=== PATIENT | male | born 1950 | race Asian ===

== ENCOUNTER 2017-04-26 03:07 | Inpatient (IN) | payer OTHER ==
[~2017-04-26] VITALS: Ht 167.6 cm; Wt 91.2 kg
[2017-04-26] VITALS (9 sets, daily range): BP systolic 105–162; BP diastolic 75–110
--- NOTE | ~2017-04-26 | EKG ---
[address] [place] [address] ELECTROCARDIOGRAM REPORT Name: EMILIANA MASCORRO Room #: 239-P ADM IN M.R.#: [id number] Admission: 04/26/17 Attend Phys: Chauncey Mcfadden Discharge: Date of : 46 Report #: [id number] THIS REPORT FOR: //name// [facility] Test Date: 2017-04-28 Test Time: 07:28:06 Pat Name: EMILIANA MASCORRO Department: Room: 239 P Gender: M Clinical Courier: Noni : 1950 Requested By: uJlianna Osorio Order Number: [id number] MD: Merlin Islas Measurements Intervals [place] Rate: 98 P: 40 [place]: 150 QRS: -70 QRSD: 137 T: 55 QT: 317 QTc: 405 Interpretive Statements Sinus rhythm Right bundle branch block Inferior infarct, old Anterolateral infarct, old Compared to ECG 04/26/2017 10:02:52 inferior repolarization abnormality is no longer present Electronically Signed On 04-28-2017 8:03:52 CDT by Merlin Islas [email or web address] <ELECTRONICALLY SIGNED> By: Merlin Islas MD, [facility] 04/28/17802 7 7 Merlin Islas MD, [facility] /EPI
--- NOTE | ~2017-04-26 | EKG ---
[address] [place] [address] ELECTROCARDIOGRAM REPORT Name: EMILIANA MASCORRO Room #: 211-P ADM IN M.R.#: [id number] Admission: 04/26/17 Attend Phys: Chauncey Mcfadden Discharge: Date of : 46 Report #: [id number] THIS REPORT FOR: //name// [facility] ED Test Date: 2017-04-26 Test Time: 03:17:27 Pat Name: EMILIANA MASCORRO Department: Room: 211 Gender: M Tool Hardener: YULIA : 1950 Requested By: Laureen Biswas Order Number: [id number] MD: Merlin Islas Measurements Intervals [place] Rate: 91 P: [place]: QRS: -83 QRSD: 165 T: -6 QT: 434 QTc: 535 Interpretive Statements Atrial flutter Right bundle branch block Anterolateral infarct, age indeterminate Possible inferior infarct, age indeterminate No previous ECG available for comparison Electronically Signed On 04-27-2017 9:59:54 CDT by Merlin Islas [email or web address] <ELECTRONICALLY SIGNED> By: Merlin Islas MD, [facility] 04/27/17 0959 D: 08/316 6 Merlin Islas MD, FACC /EPI
--- NOTE | ~2017-04-26 | CATHLAB ---
[facility] [address] [place] [address] INVASIVE PROCEDURE REPORT Name: EMILIANA MASCORRO Room #: 211-P [facility] IN M.R.#: [id number] Admission: 04/26/17 Attend Phys: Chauncey Cruz Discharge: 05/03/17 Date of : 46 Date of Service: 05/04/17 1736 Report #: [id number] THIS REPORT FOR: //name// APPROVED REPORT Patient Details Patient Status: In-Patient Room #: The patient is a 67 year-old male Event Personnel Bereket Díaz Electric Motor And Generator Assembler, Bethany Matt RN RN, Angelo Hazel RN, Yuli Kaufman, Roger Alves Monitor Procedures Performed Left Heart Cath w/or w/o Coronaries [id number] [facility] , Left Heart Catheterization, Supervision of Conscious sedation Indication Non-STEMI Procedure Narrative The Right Groin^ was infiltrated with 1% Lidocaine subcutaneous anesthesia. A PINNACLE 4FR Sheath #[id number] sheath was inserted into the RFA^. Coronary angiography was performed using coronary diagnostic catheters. The right coronary system was accessed and visualized with a JR4 catheter. The left coronary system was accessed and visualized with a JL4 catheter. The left ventricle was accessed and visualized with a PIGTAIL catheter. Left ventricular/Aortic Valve gradient assessed via catheter pullback. Hemostasis was obtained with manual pressure following sheath removal without any complications. The patient tolerated the procedure well and there were no complications associated with the procedure. There was no hematoma. Intraoperative Conscious Sedation Sedation start time: 12:56 Case end Time: 13:13 Versed 2 mg Fluoro Time: 2.52 minutes Dose: 435 mGy Contrast Type and Amount: Omnipaque [address] [facility] [place] [address] [address] INVASIVE PROCEDURE REPORT Name: EMILIANA MASCORRO Room #: [facility] IN ..#: [id number] Admission: 04/26/17 Attend Phys: Chauncey Cruz Discharge: 05/03/17 Date of : 46 Date of Service: 05/04/17 1736 Report #: [id number] Diagnostic Cath Left Main Normal origin and caliber bifurcating into LAD and LCx without obstructing lesions. LAD Small to moderate caliber vessel with a napkin ring lesion proximally which is eccentric and aprrox 76% stenosed. It then bifurcating with first diagonal branch. the ostial mid LAD had 99% lesion anf the vessel continues in anterior interventricular sulcus tapering to apex. Circumflex Moderate caliber vessel which at the origin of a long first marginal is subtotally occcluded with thrombus present. the distal cx is a small nonbranching vessel terminating in av groove OM1 subtotally and diffusely diseased vessel with two subtotally blocked branches reconstituting via hetero and homo collaterals. R PDA Moderate proximal lesion of approximately 65% RPLV Proximal region of abnormality which may represent a moderate non flow limiting lesion Left Ventriculography The left ventricle is moderately dilated in size with contractility. The left ventricular ejection fraction is estimated to be 50%. Left ventricular wall motion abnormalities are present. Hemodynamics The aortic pressure is 119/72 mmHg with a mean of 92 mmHg. The left ventricular pressure is 126/10 mmHg with a mean of mmHg. The left ventricular end diastolic pressure is 34 mmHg. Conclusion 1 SIGNIFICANT MULTIVESSEL DISEASE BEST REVASCULARIZED WITH ACBG 2.NORMAL EJECTION FRACTION WITH INFERIOR AKINESIS Recommendations Aggressive Medical Therapy CABG <ELECTRONICALLY SIGNED> By: Bereket Díaz MD 05/04/17 1736 1736 1736 Bereket Díaz MD /INF
--- NOTE | ~2017-04-26 | EKG ---
[address] [place] [address] ELECTROCARDIOGRAM REPORT Name: EMILIANA MASCORRO Room #: 211-P ADM IN M.R.#: [id number] Admission: 04/26/17 Attend Phys: Chauncey Mcfadden Discharge: Date of : 46 Report #: [id number] THIS REPORT FOR: //name// [facility] Test Date: 2017-04-26 Test Time: 10:02:52 Pat Name: EMILIANA MASCORRO Department: Room: 211 P Gender: M Live In Housekeeper Nanny: EVELIO : 1950 Requested By: Chauncey Mcfadden Order Number: [id number] MD: Merlin Islas Measurements Intervals [place] Rate: 82 P: 32 [place]: 150 QRS: -91 QRSD: 154 T: 4 QT: 422 QTc: 493 Interpretive Statements Sinus rhythm Right bundle branch block Anterolateral infarct, age indeterminate Inferior infarct, old No previous ECG available for comparison Electronically Signed On 04-27-2017 10:22:35 CDT by Merlin Islas [email or web address] <ELECTRONICALLY SIGNED> By: Merlin Islas MD, [facility] 04/27/17 1022 1002 1002 Merlin Islas MD, FACC /EPI
--- NOTE | ~2017-04-26 | 2DMMODE ---
[facility] [address] [place] [address] 2 D/M-MODE ECHOCARDIOGRAM Name: EMILIANA MASCORRO Room #: 211-P ADM IN M.R.#: [id number] Admission: 04/26/17 Attend Phys: Chauncey Cruz Discharge: Date of : 46 Date of Service: 04/26/17 1646 Report #: [id number] THIS REPORT FOR: //name// APPROVED REPORT Study performed: 04/26/2017 14:16:50 EXAM: Comprehensive 2D, Doppler, and color-flow Echocardiogram Patient Location: Bedside Room #: 211 Status: routine BSA: 1.99 HR: 86 bpm BP: 120/83 mmHg Other Information Study Quality: Fair Indications Pre-Op Hx HTN, DM 2D Dimensions RVDd: 36.00 mm LVEF(%): 69.80 (>50%) IVSd: 10.37 (7-11mm) LVOT Diam: 23.34 (18-24mm) LVDd: 53.23 mm PWd: 11.31 (7-11mm) Ascending Ao: 34.95 (22-36mm) LVDs: 32.10 (25-40mm) Aortic Root: 35.36 mm Arango's LVEF: 69.80 % Volumes Left Atrial Volume (Systole) Single Plane 4CH: 29.19 mL Single Plane 2CH: 76.04 mL LA ESV Index: 28.00 mL/m2 Aortic Valve AoV Peak Olayinka.: 1.23 m/s AO Peak Gr.: 6.06 mmHg LVOT Max P.60 mmHg LVOT Max V: 1.07 m/s ERIC Vmax: 3.72 cm2 Mitral Valve E/A Ratio: 1.9 MV Decel. Time: 160.15 ms [facility] [place] [place] [address] 2 D/M-MODE ECHOCARDIOGRAM Name: EMILIANA MASCORRO Room #: [address] [place] [address] IN ..#: [id number] Admission: 04/26/17 Attend Phys: Chauncey Cruz Discharge: Date of : 46 Date of Service: 04/26/17 1646 Report #: [id number] MV E Max Olayinka.: 1.19 m/s MV A Olayinka.: 0.64 m/s MV PHT: 46.44 ms IVRT: 73.82 ms Pulmonary Valve PV Peak Olayinka.: 1.13 m/s PV Peak Gr.: 5.13 mmHg Pulmonary Vein P Vein S: 0.43 m/s P Vein D: 0.49 m/s P Vein S/D Ratio: 0.88 Tricuspid Valve TR Peak Olayinka.: 3.58 m/s RAP Estimate: 5.00 mmHg TR Peak Gr.: 51.22 mmHg PA Pressure: 56.00 mmHg Left Ventricle The left ventricle is normal size. distal septal hypokinesis There is normal left ventricular wall thickness. The left ventricular systolic function is normal. The left ventricular ejection fraction is within the normal range. LVEF is 65%. The left ventricular diastolic function is normal. Right Ventricle The right ventricle is normal size. The right ventricular systolic function is normal. Atria The left atrium size is normal. The right atrium size is normal. Aortic Valve The aortic valve is not well visualized. Trace aortic regurgitation. There is no aortic valvular stenosis. Mitral Valve Mitral valve leaflets are thickened. Moderate mitral regurgitation. No evidence of mitral valve stenosis. Tricuspid Valve The tricuspid valve is normal in structure. There is trace tricuspid regurgitation. The right atrial pressure is estimated at 5 mmHg. There is moderate pulmonary hypertension with an estimated PAP of 56 mmHg. [facility] [address] [place] [address] 2 D/M-MODE ECHOCARDIOGRAM Name: EMILIANA MASCORRO Room #: 211-P [facility] IN M.R.#: [id number] Admission: 04/26/17 Attend Phys: Chauncey Cruz Discharge: Date of : 46 Date of Service: 04/26/17 1646 Report #: [id number] Pulmonic Valve The pulmonary valve is normal in structure. Trace pulmonic regurgitation. Great Vessels The aortic root is normal in size. The ascending aorta is normal in size. IVC is normal in size and collapses >50% with inspiration. Pericardium There is no pericardial effusion. <Conclusion> The left ventricle is normal size. distal septal hypokinesis LVEF is 65%. The right ventricle is normal size. The right ventricular systolic function is normal. The aortic valve is not well visualized. Trace aortic regurgitation. There is no aortic valvular stenosis. Mitral valve leaflets are thickened. Moderate mitral regurgitation. The tricuspid valve is normal in structure. There is trace tricuspid regurgitation. The right atrial pressure is estimated at 5 mmHg. There is moderate pulmonary hypertension with an estimated PAP of 56 mmHg. The pulmonary valve is normal in structure. Trace pulmonic regurgitation. The aortic root is normal in size. The ascending aorta is normal in size. <ELECTRONICALLY SIGNED> By: Bereket Díaz MD 04/26/17 1646 164 164 Bereket Díaz MD /INF
--- NOTE | ~2017-04-26 | EKG ---
[place] [address] [facility] [place] [address] ELECTROCARDIOGRAM REPORT Name: EMILIANA MASCORRO Room #: 211-P ADM IN M.R.#: [id number] Admission: 04/26/17 Attend Phys: Chauncey Mcfadden Discharge: Date of : 46 Report #: [id number] THIS REPORT FOR: //name// [facility] ED Test Date: 2017-04-26 Test Time: 03:20:49 Pat Name: EMILIANA MASCORRO Department: Room: 211 Gender: M Human Resource Assistant: YULIA : 1950 Requested By: Laureen Biswas Order Number: [id number] MD: Merlin Islas Measurements Intervals [place] Rate: 86 P: 41 [place]: 151 QRS: -91 QRSD: 162 T: -8 QT: 421 QTc: 504 Interpretive Statements Sinus rhythm Right bundle branch block Anterolateral infarct, age indeterminate Inferior infarct, age indeterminate No previous ECG available for comparison Electronically Signed On 04-27-2017 10:00:15 CDT by Merlin Islas [email or web address] <ELECTRONICALLY SIGNED> By: Merlin Islas MD, [facility] 04/27/17 1000 D: 08/319 9 Merlin Islas MD, FACC /EPI
--- NOTE | ~2017-04-26 | EKG ---
[place] [address] [facility] [place] [address] ELECTROCARDIOGRAM REPORT Name: EMILIANA MASCORRO Room #: 211-P ADM IN M.R.#: [id number] Admission: 04/26/17 Attend Phys: Chauncey Mcfadden Discharge: Date of : 46 Report #: [id number] THIS REPORT FOR: //name// [facility] ED Test Date: 2017-04-26 Test Time: 03:58:40 Pat Name: EMILIANA MASCORRO Department: Room: 211 P Gender: M Care Program Resident: PIETER : 1950 Requested By: Latoya Davis Order Number: [id number] MD: Merlin Islas Measurements Intervals [place] Rate: 79 P: 35 [place]: 157 QRS: -87 QRSD: 154 T: -10 QT: 431 QTc: 495 Interpretive Statements Sinus rhythm Right bundle branch block Inferior infarct, age indeterminate Antererolateral infarct, old No previous ECG available for comparison Electronically Signed On 04-27-2017 10:01:01 CDT by Merlin Islas [email or web address] <ELECTRONICALLY SIGNED> By: Merlin Islas MD, [facility] 04/27/17 1001 7 7 Merlin Islas MD, [facility] /EPI
--- NOTE | ~2017-04-26 | EKG ---
[place] [address] [facility] [place] [address] ELECTROCARDIOGRAM REPORT Name: EMILIANA MASCORRO Room #: 239-P ADM IN M.R.#: [id number] Admission: 04/26/17 Attend Phys: Chauncey Mcfadden Discharge: Date of : 46 Report #: [id number] THIS REPORT FOR: //name// [facility] Test Date: 2017-04-27 Test Time: 18:15:03 Pat Name: EMILIANA MASCORRO Department: Room: 239 Gender: M Optical Dispenser: Chace SOLOMON : 1950 Requested By: Julianna Osorio Order Number: [id number] MD: Merlin Islas Measurements Intervals [place] Rate: 105 P: 41 [place]: 153 QRS: -73 QRSD: 145 T: 52 QT: 380 QTc: 503 Interpretive Statements Sinus tachycardia Right bundle branch block Inferior infarct, possibly acute Anterolateral infarct, age indeterminate Compared to ECG 04/26/2017 10:02:52 Inferior repolarization abnormality is more prominent Electronically Signed On 04-28-2017 7:56:46 CDT by Merlin Islas [email or web address] <ELECTRONICALLY SIGNED> By: Merlin Islas MD, [facility] 04/28/17 [facility]6 1815 1815 Merlin Islas MD, [facility] /EPI
[2017-04-26 03:28] LABS: ABSOLUTE NEUTROPHILS 4.2 thou/uL (1.4-8.2); EOSINOPHILS 4.2 % (0.0-3.0); HEMATOCRIT 42.2 % (42.0-52.0); HEMOGLOBIN 14.5 gm/dL (14.0-18.0); LYMPHOCYTES 31.8 % (24.0-44.0); MCH 31.6 pg (26.0-34.0); MCHC 34.3 g/dL (28.0-37.0); MCV 92.2 fL (80.0-100.0); MONOCYTES 6.7 % (1.0-8.0); PLATELET COUNT 217 thou/uL (150-400); POLYS 56.3 % (36.0-66.0); RBC 4.58 mil/uL (4.50-6.00); RDW 12.1 % (10.5-14.5); WBC 7.4 thou/uL (4.0-11.0)
[2017-04-26 03:34] LABS: MANUAL DIFF NO
[2017-04-26] MEDS ORDERED: IBUPROFEN 200200 M1 PO (03:34)
[2017-04-26 03:39] LABS: CALCIUM 8.5 mg/dL (8.5-10.1); CREATININE 1.1 mg/dL (0.7-1.3); POTASSIUM 3.8 mmol/L (3.5-5.1)
[2017-04-26 03:49] LABS: APTT 28.3 Seconds (24.5-32.8); PROTIME 9.8 Seconds (9.3-11.4)
[2017-04-26 03:51] LABS: TROPONIN-I 2.88 ng/mL (<0.04-0.07)
[2017-04-26 05:48] LABS: CHOLESTEROL 161 mg/dL (<200); HDL CHOLESTEROL 45 mg/dL (>40); LDL CHOLESTEROL 101 mg/dL (<100); TC:HDL 3.6 Ratio (Not establshd); TRIGLYCERIDE 76 mg/dL (<150); VLDL 15 mg/dL (<40)
[2017-04-26 05:52] LABS: SERUM ASSESSMENT Clear
[2017-04-26 15:39] LABS: HEMATOCRIT 40.6 % (42.0-52.0); HEMOGLOBIN 13.7 gm/dL (14.0-18.0); MCH 30.9 pg (26.0-34.0); MCHC 33.7 g/dL (28.0-37.0); MCV 91.9 fL (80.0-100.0); RBC 4.42 mil/uL (4.50-6.00); RDW 12.4 % (10.5-14.5); WBC 7.6 thou/uL (4.0-11.0)
[2017-04-26 15:53] LABS: CALCIUM 8.7 mg/dL (8.5-10.1); POTASSIUM 4.2 mmol/L (3.5-5.1)
[2017-04-26 15:57] LABS: APTT 31.7 Seconds (24.5-32.8); PROTIME 10.1 Seconds (9.3-11.4)
[2017-04-26 16:00] LABS: ALBUMIN 3.3 g/dL (3.4-5.0); TOTAL BILIRUBIN 0.9 mg/dL (<0.1-1.0); TOTAL PROTEIN 6.8 g/dL (6.4-8.2)
[2017-04-26 20:15] LABS: ABG SAMPLE TYPE ARTERIAL; BE(vivo) -3.2 mmol/L (-2 to +3); HCO3 20.8 mmol/L (22.0-26.0); LACTATE 0.93 mmol/L (0.5-2.0); O2(CT) 19.7 mL/dL (15.0-23.0); O2Hb 96.7 % (92.0-98.0); PCO2 34.5 mmHg (35.0-45.0); PO2 106.4 mmHg (80.0-100.0); pH 7.399 (7.360-7.450); sO2 97.9 % (92.0-98.0); tCO2 21.9 mmol/L (24.0-30.0)
[2017-04-26 20:16] LABS: ABG COMMENT NO COMPLICATIONS.; STICK SITE R.RADIAL
[2017-04-26 22:10] LABS: URINE BILIRUBIN NEGATIVE (Negative); URINE BLOOD TRACE (Negative); URINE COLOR YELLOW; URINE GLUCOSE-RANDOM* NEGATIVE (Negative); URINE KETONES 2+ (Negative); URINE LEUKOCYTES-REFLEX NEGATIVE (Negative); URINE PROTEIN (DIPSTICK) NEGATIVE (Negative); URINE SPECIFIC GRAVITY 1.025 (1.003-1.035); URINE UROBILINOGEN 0.2 E.U./dl (0.2-1.0)
[2017-04-27] VITALS (11 sets, daily range): BP systolic 62–141; BP diastolic 47–85
[2017-04-27 05:43] LABS: GLYCOHEMOGLOBIN (HGB A1C) 4.8 % (4.8-5.6)
[2017-04-27 16:23] LABS: APTT 31.1 Seconds (24.5-32.8); FIBRINOGEN 197.3 mg/dL (210-360); INR 1.5
[2017-04-27 16:47] LABS: POC BE 3 mmol/L (-2.0 to +3.0); POC CA IONIZED 4.1 mg/dL (4.5-5.3); POC FiO2 100 %; POC GLUCOSE 138 mg/dL (70-99); POC HCO3 28.9 mmol/L (22.0-26.0); POC HEMOGLOBIN 9.5 g/dL (14.0-18.0); POC POTASSIUM 4.1 mmol/L (3.5-5.1); POC SODIUM 133 mmol/L (136-145); POC pCO2 56.4 mmHg (35.0-45.0); POC pH 7.317 (7.360-7.450)
[2017-04-27 16:47] LABS: POC BE -6 mmol/L (-2.0 to +3.0); POC CA IONIZED 4.7 mg/dL (4.5-5.3); POC FiO2 100 %; POC GLUCOSE 107 mg/dL (70-99); POC HCO3 19.5 mmol/L (22.0-26.0); POC HEMOGLOBIN 11.9 g/dL (14.0-18.0); POC POTASSIUM 4.4 mmol/L (3.5-5.1); POC SODIUM 136 mmol/L (136-145); POC pCO2 35.3 mmHg (35.0-45.0); POC pH 7.352 (7.360-7.450)
[2017-04-27 16:47] LABS: POC BE 1 mmol/L (-2.0 to +3.0); POC CA IONIZED 4.2 mg/dL (4.5-5.3); POC FiO2 80 %; POC GLUCOSE 132 mg/dL (70-99); POC HCO3 24.8 mmol/L (22.0-26.0); POC HEMOGLOBIN 8.8 g/dL (14.0-18.0); POC POTASSIUM 4.9 mmol/L (3.5-5.1); POC SODIUM 136 mmol/L (136-145); POC pH 7.435 (7.360-7.450)
[2017-04-27 16:47] LABS: POC BE -1 mmol/L (-2.0 to +3.0); POC CA IONIZED 4.2 mg/dL (4.5-5.3); POC FiO2 80 %; POC GLUCOSE 145 mg/dL (70-99); POC HCO3 22.9 mmol/L (22.0-26.0); POC HEMOGLOBIN 8.8 g/dL (14.0-18.0); POC SODIUM 136 mmol/L (136-145); POC pCO2 31.3 mmHg (35.0-45.0); POC pH 7.471 (7.360-7.450)
[2017-04-27 16:47] LABS: POC BE -1 mmol/L (-2.0 to +3.0); POC CA IONIZED 4.2 mg/dL (4.5-5.3); POC FiO2 100 %; POC GLUCOSE 125 mg/dL (70-99); POC HCO3 24.6 mmol/L (22.0-26.0); POC HEMOGLOBIN 8.2 g/dL (14.0-18.0); POC POTASSIUM 5.1 mmol/L (3.5-5.1); POC SODIUM 133 mmol/L (136-145); POC pCO2 43.2 mmHg (35.0-45.0); POC pH 7.364 (7.360-7.450)
[2017-04-27 16:47] LABS: POC BE -1 mmol/L (-2.0 to +3.0); POC CA IONIZED 4.2 mg/dL (4.5-5.3); POC FiO2 100 %; POC GLUCOSE 136 mg/dL (70-99); POC HCO3 25.1 mmol/L (22.0-26.0); POC HEMOGLOBIN 10.2 g/dL (14.0-18.0); POC POTASSIUM 4.1 mmol/L (3.5-5.1); POC SODIUM 135 mmol/L (136-145); POC pCO2 51.8 mmHg (35.0-45.0); POC pH 7.292 (7.360-7.450)
[2017-04-27 16:47] LABS: POC BE -1 mmol/L (-2.0 to +3.0); POC CA IONIZED 5.2 mg/dL (4.5-5.3); POC FiO2 100 %; POC GLUCOSE 140 mg/dL (70-99); POC HEMOGLOBIN 8.5 g/dL (14.0-18.0); POC POTASSIUM 4.4 mmol/L (3.5-5.1); POC SODIUM 136 mmol/L (136-145); POC pCO2 34.9 mmHg (35.0-45.0); POC pH 7.427 (7.360-7.450)
[2017-04-27 16:47] LABS: POC BE -2 mmol/L (-2.0 to +3.0); POC CA IONIZED 4.7 mg/dL (4.5-5.3); POC FiO2 100 %; POC GLUCOSE 97 mg/dL (70-99); POC HCO3 23.2 mmol/L (22.0-26.0); POC HEMOGLOBIN 12.6 g/dL (14.0-18.0); POC POTASSIUM 4.5 mmol/L (3.5-5.1); POC SODIUM 136 mmol/L (136-145); POC pCO2 39.5 mmHg (35.0-45.0); POC pH 7.378 (7.360-7.450)
[2017-04-27 16:52] LABS: POC BE -6 mmol/L (-2.0 to +3.0); POC CA IONIZED 5.5 mg/dL (4.5-5.3); POC FiO2 100 %; POC GLUCOSE 151 mg/dL (70-99); POC HCO3 20.9 mmol/L (22.0-26.0); POC HEMOGLOBIN 7.1 g/dL (14.0-18.0); POC POTASSIUM 4.5 mmol/L (3.5-5.1); POC SODIUM 137 mmol/L (136-145); POC pCO2 43.9 mmHg (35.0-45.0); POC pH 7.286 (7.360-7.450)
[2017-04-27 16:52] LABS: POC BE -1 mmol/L (-2.0 to +3.0); POC CA IONIZED 4.7 mg/dL (4.5-5.3); POC FiO2 100 %; POC GLUCOSE 164 mg/dL (70-99); POC HCO3 24.5 mmol/L (22.0-26.0); POC HEMOGLOBIN 7.5 g/dL (14.0-18.0); POC POTASSIUM 4.7 mmol/L (3.5-5.1); POC SODIUM 138 mmol/L (136-145); POC pCO2 41.1 mmHg (35.0-45.0); POC pH 7.383 (7.360-7.450)
[2017-04-27 16:52] LABS: POC BE -2 mmol/L (-2.0 to +3.0); POC FiO2 100 %; POC GLUCOSE 137 mg/dL (70-99); POC HCO3 23.2 mmol/L (22.0-26.0); POC HEMOGLOBIN 8.8 g/dL (14.0-18.0); POC POTASSIUM 4.1 mmol/L (3.5-5.1); POC SODIUM 142 mmol/L (136-145); POC pH 7.372 (7.360-7.450)
[2017-04-27 16:52] LABS: POC BE -1 mmol/L (-2.0 to +3.0); POC CA IONIZED 4.4 mg/dL (4.5-5.3); POC FiO2 100 %; POC GLUCOSE 137 mg/dL (70-99); POC HCO3 23.4 mmol/L (22.0-26.0); POC HEMOGLOBIN 8.8 g/dL (14.0-18.0); POC POTASSIUM 5.2 mmol/L (3.5-5.1); POC SODIUM 137 mmol/L (136-145); POC pCO2 38.3 mmHg (35.0-45.0); POC pH 7.394 (7.360-7.450)
[2017-04-27 16:52] LABS: POC BE -4 mmol/L (-2.0 to +3.0); POC CA IONIZED 4.9 mg/dL (4.5-5.3); POC FiO2 100 %; POC GLUCOSE 171 mg/dL (70-99); POC HCO3 21.8 mmol/L (22.0-26.0); POC HEMOGLOBIN 7.8 g/dL (14.0-18.0); POC POTASSIUM 4.8 mmol/L (3.5-5.1); POC SODIUM 137 mmol/L (136-145); POC pCO2 38.8 mmHg (35.0-45.0); POC pH 7.358 (7.360-7.450)
[2017-04-27 17:59] LABS: ABG SAMPLE TYPE ARTERIAL; BE(vivo) -3.9 mmol/L (-2 to +3); LACTATE 3.42 mmol/L (0.5-2.0); O2Hb 95.1 % (92.0-98.0); PCO2 37.6 mmHg (35.0-45.0); PO2 90.6 mmHg (80.0-100.0); STICK SITE ALINE; pH 7.365 (7.360-7.450); sO2 96.7 % (92.0-98.0); tCO2 22.2 mmol/L (24.0-30.0)
[2017-04-27 18:00] LABS: ABG COMMENT CMV; TIDAL VOLUME 600 ml
[2017-04-27 18:22] LABS: MCH 31.4 pg (26.0-34.0); MCHC 34.6 g/dL (28.0-37.0); MCV 90.8 fL (80.0-100.0); RBC 3.08 mil/uL (4.50-6.00); RDW 12.5 % (10.5-14.5); WBC 18.3 thou/uL (4.0-11.0)
[2017-04-27 18:29] LABS: HEMOGLOBIN 9.7 gm/dL (14.0-18.0)
[2017-04-27 18:32] LABS: CALCIUM 9.2 mg/dL (8.5-10.1); CREATININE 1.4 mg/dL (0.7-1.3); MAGNESIUM 2.4 mg/dL (1.8-2.4); POTASSIUM 4.2 mmol/L (3.5-5.1)
[2017-04-27 18:54] LABS: INR 1.3; PROTIME 12.3 Seconds (9.3-11.4)
[2017-04-27 21:22] LABS: HEMATOCRIT 25.1 % (42.0-52.0); HEMOGLOBIN 8.9 gm/dL (14.0-18.0); MCH 30.8 pg (26.0-34.0); MCHC 35.3 % (28.0-37.0); MCV 87.2 fL (80.0-100.0); RBC 2.88 mil/uL (4.50-6.00); WBC 9.2 thou/uL (4.0-11.0)
[2017-04-27 21:23] LABS: RDW 13.9 % (10.5-14.5)
[2017-04-27 21:30] LABS: POTASSIUM 4.4 mmol/L (3.5-5.1)
[2017-04-27 21:31] LABS: CALCIUM 8.5 mg/dL (8.5-10.1); CREATININE 1.4 mg/dL (0.7-1.3); MAGNESIUM 2.1 mg/dL (1.8-2.4)
[2017-04-27 22:11] LABS: APTT 41.7 Seconds (24.5-32.8); FIBRINOGEN 175.5 mg/dL (210-360); INR 1.3
[2017-04-28] VITALS (23 sets, daily range): BP systolic 68–110; BP diastolic 53–76
[2017-04-28 00:41] LABS: POC BE 0 mmol/L (-2.0 to +3.0); POC CA IONIZED 4.9 mg/dL (4.5-5.3); POC FiO2 100 %; POC GLUCOSE 164 mg/dL (70-99); POC HCO3 23.4 mmol/L (22.0-26.0); POC HEMOGLOBIN 9.2 g/dL (14.0-18.0); POC POTASSIUM 4.4 mmol/L (3.5-5.1); POC SODIUM 145 mmol/L (136-145); POC pCO2 32.9 mmHg (35.0-45.0); POC pH 7.461 (7.360-7.450)
[2017-04-28 00:41] LABS: POC BE -5 mmol/L (-2.0 to +3.0); POC CA IONIZED 4.8 mg/dL (4.5-5.3); POC FiO2 100 %; POC GLUCOSE 185 mg/dL (70-99); POC HCO3 22.2 mmol/L (22.0-26.0); POC HEMOGLOBIN 8.2 g/dL (14.0-18.0); POC POTASSIUM 4.7 mmol/L (3.5-5.1); POC SODIUM 143 mmol/L (136-145); POC pCO2 51.9 mmHg (35.0-45.0)
[2017-04-28 05:20] LABS: ABG SAMPLE TYPE ARTERIAL; BE(vivo) -0.4 mmol/L (-2 to +3); HCO3 23.8 mmol/L (22.0-26.0); LACTATE 2.13 mmol/L (0.5-2.0); O2(CT) 15.4 mL/dL (15.0-23.0); O2Hb 95.4 % (92.0-98.0); PCO2 37.7 mmHg (35.0-45.0); PO2 88.6 mmHg (80.0-100.0); pH 7.419 (7.360-7.450); sO2 96.9 % (92.0-98.0)
[2017-04-28 05:27] LABS: FIO2 40 %; STICK SITE LINE; TIDAL VOLUME 0.442 ml
[2017-04-28 05:33] LABS: HEMATOCRIT 30.4 % (42.0-52.0); HEMOGLOBIN 10.6 gm/dL (14.0-18.0); MCH 30.3 pg (26.0-34.0); MCHC 34.9 g/dL (28.0-37.0); MCV 86.8 fL (80.0-100.0); RBC 3.5 mil/uL (4.50-6.00); WBC 9.1 thou/uL (4.0-11.0)
[2017-04-28 05:41] LABS: CALCIUM 8.2 mg/dL (8.5-10.1); CREATININE 1.5 mg/dL (0.7-1.3); MAGNESIUM 2.1 mg/dL (1.8-2.4); POTASSIUM 4.3 mmol/L (3.5-5.1)
[2017-04-28 14:13] LABS: ABG SAMPLE TYPE ARTERIAL; BE(vivo) -0.8 mmol/L (-2 to +3); LACTATE 3.06 mmol/L (0.5-2.0); O2(CT) 14.4 mL/dL (15.0-23.0); O2Hb 92.2 % (92.0-98.0); PCO2 34.8 mmHg (35.0-45.0); PO2 68.2 mmHg (80.0-100.0); pH 7.438 (7.360-7.450); sO2 94.4 % (92.0-98.0); tCO2 24.1 mmol/L (24.0-30.0)
[2017-04-28 14:14] LABS: Pressure Support 8 cm H20; STICK SITE LINE; TIDAL VOLUME 550 ml
[2017-04-28 14:15] LABS: ABG COMMENT CPAP
[2017-04-29] VITALS (28 sets, daily range): BP systolic 77–139; BP diastolic 48–124
[2017-04-29 05:09] LABS: HEMATOCRIT 30.4 % (42.0-52.0); HEMOGLOBIN 10.4 gm/dL (14.0-18.0); MCH 30.1 pg (26.0-34.0); MCHC 34.2 g/dL (28.0-37.0); MCV 88.2 fL (80.0-100.0); RBC 3.45 mil/uL (4.50-6.00); RDW 14.2 % (10.5-14.5)
[2017-04-29 05:21] LABS: CALCIUM 8.2 mg/dL (8.5-10.1); CREATININE 1.6 mg/dL (0.7-1.3); MAGNESIUM 2.1 mg/dL (1.8-2.4); POTASSIUM 4.5 mmol/L (3.5-5.1)
[2017-04-30] VITALS (18 sets, daily range): BP systolic 78–137; BP diastolic 50–93
[2017-04-30 09:24] LABS: HEMATOCRIT 28.7 % (42.0-52.0); HEMOGLOBIN 9.9 gm/dL (14.0-18.0); MCH 30.2 pg (26.0-34.0); MCHC 34.3 g/dL (28.0-37.0); MCV 88.1 fL (80.0-100.0); RBC 3.26 mil/uL (4.50-6.00); RDW 14.1 % (10.5-14.5); WBC 16.5 thou/uL (4.0-11.0)
[2017-04-30 09:30] LABS: CALCIUM 8.6 mg/dL (8.5-10.1); CREATININE 1.2 mg/dL (0.7-1.3); POTASSIUM 4.2 mmol/L (3.5-5.1)
[2017-04-30 16:44] LABS: HEMATOCRIT 30.3 % (42.0-52.0); HEMOGLOBIN 10.3 gm/dL (14.0-18.0)
[2017-05-01 00:30] VITALS: BP 111/74
[2017-05-01 04:35] VITALS: BP 110/71
[2017-05-01 07:25] VITALS: BP 118/76
[2017-05-01 10:48] VITALS: BP 104/69
[2017-05-01 15:26] VITALS: BP 104/70
[2017-05-01 19:40] VITALS: BP 106/73
[2017-05-02 03:54] LABS: CALCIUM 8.7 mg/dL (8.5-10.1); CREATININE 1.2 mg/dL (0.7-1.3); POTASSIUM 4.4 mmol/L (3.5-5.1)
[2017-05-02 04:55] VITALS: BP 139/87
[2017-05-02 07:23] VITALS: BP 121/74
[2017-05-02 09:02] LABS: HEMATOCRIT 33.3 % (42.0-52.0); MCH 29.8 pg (26.0-34.0); MCV 90.2 fL (80.0-100.0); RBC 3.69 mil/uL (4.50-6.00); RDW 13.7 % (10.5-14.5); WBC 16.3 thou/uL (4.0-11.0)
[2017-05-02 09:04] LABS: MANUAL DIFF YES; PLATELET COUNT 209 thou/uL (150-400)
[2017-05-02 09:35] LABS: TOTAL CELL COUNT 100
[2017-05-02 09:36] LABS: ANISOCYTOSIS 2+
[2017-05-02 09:37] LABS: POLYCHROMASIA 1+
[2017-05-02 09:38] LABS: POIKILOCYTOSIS SLIGHT
[2017-05-02 11:15] VITALS: BP 90/60
[2017-05-02 16:08] VITALS: BP 103/67
[2017-05-02 20:41] VITALS: BP 107/67
[2017-05-03 03:13] LABS: HEMOGLOBIN 10.6 gm/dL (14.0-18.0); MCH 29.6 pg (26.0-34.0); MCHC 33.2 g/dL (28.0-37.0); MCV 89.3 fL (80.0-100.0); PLATELET COUNT 259 thou/uL (150-400); RBC 3.59 mil/uL (4.50-6.00); RDW 13.8 % (10.5-14.5); WBC 18.1 thou/uL (4.0-11.0)
[2017-05-03 03:14] LABS: MANUAL DIFF YES
[2017-05-03 03:18] VITALS: BP 99/47
[2017-05-03 03:38] LABS: CALCIUM 8.5 mg/dL (8.5-10.1); CREATININE 1.3 mg/dL (0.7-1.3); MAGNESIUM 2.2 mg/dL (1.8-2.4); POTASSIUM 4.4 mmol/L (3.5-5.1)
[2017-05-03 03:53] LABS: MYELOCYTES 1 %; TOTAL CELL COUNT 100
[2017-05-03 07:45] VITALS: BP 103/65
[2017-05-03] MEDS ORDERED: DEMADEX20 MG PO (08:36)
[2017-05-03] MEDS ORDERED: LOPRESSOR50 PO (08:36)
[2017-05-03] MEDS ORDERED: COLACE100 MG PO (08:36)
[2017-05-03] MEDS ORDERED: ATORVASTATIN CA40 MG PO (08:36)
[2017-05-03] MEDS ORDERED: HYDROCODON-ACE1 EAC7 PO (08:36)
[2017-05-03] MEDS ORDERED: POTASSIUM20 PO (08:36)
[2017-05-03] MEDS ORDERED: ASPIRIN325 PO (08:36)
[2017-05-03 11:26] VITALS: BP 76/47
[2017-05-03 13:50] VITALS: BP 76/47
[2017-05-03 14:00] VITALS: BP 76/47
[2017-05-03 14:20] VITALS: BP 76/47
[2017-05-07] MEDS ORDERED: LEVAQUIN 750 M750 MG PO (16:27)
== END 2017-05-03 15:35 | disposition home health service (06) | DRG 233 ==
LOC: ER 03:07 → 2N 03:56 → EROBS 03:56 → 2N 04:10 → TBA 04-27 11:03 → ICU 04-27 17:21 → 2N 04-30 14:23
PROVIDERS: Anesthesiology; Emergency Medicine; Hospitalist; Internal Medicine; Nurse Practitioner; Nurse Practitioner Acute Care; Thoracic Surgery (Cardiothoracic Vascular Surgery)
PROC: 021309W Bypass Coronary Artery, Four or More Arteries from Aorta with Autologous Venous Tissue, Open Approach (ICD-10-PCS; principal; 2017-04-27)
PROC: 4A023N7 Measurement of Cardiac Sampling and Pressure, Left Heart, Percutaneous Approach (ICD-10-PCS; 2017-04-27)
PROC: 06BQ4ZZ Excision of Left Saphenous Vein, Percutaneous Endoscopic Approach (ICD-10-PCS; 2017-04-27)
PROC: 0P900ZZ Drainage of Sternum, Open Approach (ICD-10-PCS; 2017-04-27)
PROC: 5A1221Z Performance of Cardiac Output, Continuous (ICD-10-PCS; 2017-04-27)
PROC: B2111ZZ Fluoroscopy of Multiple Coronary Arteries using Low Osmolar Contrast (ICD-10-PCS; 2017-04-27)
PROC: B2151ZZ Fluoroscopy of Left Heart using Low Osmolar Contrast (ICD-10-PCS; 2017-04-27)
PROC: B548ZZA Ultrasonography of Superior Vena Cava, Guidance (ICD-10-PCS; 2017-04-27)
PROC: 02HV33Z Insertion of Infusion Device into Superior Vena Cava, Percutaneous Approach (ICD-10-PCS; 2017-04-27)
PROC: 30243K1 Transfusion of Nonautologous Frozen Plasma into Central Vein, Percutaneous Approach (ICD-10-PCS; 2017-04-27)
PROC: 30243R1 Transfusion of Nonautologous Platelets into Central Vein, Percutaneous Approach (ICD-10-PCS; 2017-04-27)
PROC: 30243L1 Transfusion of Nonautologous Fresh Plasma into Central Vein, Percutaneous Approach (ICD-10-PCS; 2017-04-27)
PROC: 30243N1 Transfusion of Nonautologous Red Blood Cells into Central Vein, Percutaneous Approach (ICD-10-PCS; 2017-04-27)
PROC: 5A1935Z Respiratory Ventilation, Less than 24 Consecutive Hours (ICD-10-PCS; 2017-04-27)
PROC: 0BH17EZ Insertion of Endotracheal Airway into Trachea, Via Natural or Artificial Opening (ICD-10-PCS; 2017-04-27)
DX: I21.4 Non-ST elevation (NSTEMI) myocardial infarction (principal); I50.33 Acute on chronic diastolic (congestive) heart failure; D62 Acute posthemorrhagic anemia; N17.9 Acute kidney failure, unspecified; I25.10 Atherosclerotic heart disease of native coronary artery without angina pectoris; I24.9 Acute ischemic heart disease, unspecified; I16.0 Hypertensive urgency; E78.00 Pure hypercholesterolemia, unspecified; I10 Essential (primary) hypertension; F17.210 Nicotine dependence, cigarettes, uncomplicated; Z71.6 Tobacco abuse counseling; Z82.49 Family history of ischemic heart disease and other diseases of the circulatory system
CPT/HCPCS: 10081; 10203; 47000; 47001; 47002; 47297; 47405; 48888; 50011; 50101; 50249; 50409; 50456; 50497; 50668; 51301; 52131; 52314; 53327; 53358; 54118; 56524; 56525; 56526; 56527; 56528; 56531; 56534; 56639; 56660; 56668; 56760; 56898; 57093; 62110; 62900; 62950; 65002; 65003; 65020; 65043; 65090; 65120

== ENCOUNTER 2017-05-09 11:49 | Inpatient (IN) | payer OTHER ==
[~2017-05-09] VITALS: Ht 167.6 cm; Wt 83.4 kg
--- NOTE | ~2017-05-09 | EKG ---
[address] [place] [address] ELECTROCARDIOGRAM REPORT Name: EMILIANA MASCORRO Room #: 218-P ADM IN M.R.#: [id number] Admission: 05/09/17 Attend Phys: Pk García MD Discharge: Date of : 46 Report #: [id number] THIS REPORT FOR: //name// [facility] ED Test Date: 2017-05-09 Test Time: 11:58:05 Pat Name: EMILIANA MASCORRO Department: Room: 6 Gender: M Shrinker: MORENA : 1950 Requested By: Order Number: [id number] MD: Merlin Islas Measurements Intervals [place] Rate: 81 P: 47 [place]: 151 QRS: -85 QRSD: 111 T: 85 QT: 400 QTc: 465 Interpretive Statements Sinus rhythm Inferior and posterolateral infarcts, old No previous ECG available for comparison Electronically Signed On 05-11-2017 12:46:01 CDT by Merlin Islas [email or web address] <ELECTRONICALLY SIGNED> By: Merlin Islas MD, [facility] 05/11/17 1246 1158 1158 Merlin Islas MD, FACC /EPI
--- NOTE | ~2017-05-09 | EKG ---
[address] [place] [address] ELECTROCARDIOGRAM REPORT Name: EMILIANA MASCORRO Room #: 218-P ADM IN M.R.#: [id number] Admission: 05/09/17 Attend Phys: Pk García MD Discharge: Date of : 46 Report #: [id number] THIS REPORT FOR: //name// [facility] Test Date: 2017-05-09 Test Time: 17:23:17 Pat Name: EMILIANA MASCORRO Department: Room: 218 P Gender: M Inbound Sales Advisor: stanislaw : 1950 Requested By: Pk García Order Number: [id number] MD: Merlin Islas Measurements Intervals [place] Rate: 84 P: 47 [place]: 152 QRS: -82 QRSD: 115 T: 75 QT: 389 QTc: 460 Interpretive Statements Sinus rhythm Nonspecific IVCD with LAD Inferolateral and posterior infarct, age indeterminate Baseline wander in lead(s) V2,V3 Compared to ECG 04/28/2017 07:28:06 No significant change was found Electronically Signed On 05-11-2017 12:51:00 CDT by Merlin Islas [email or web address] <ELECTRONICALLY SIGNED> By: Merlin Islas MD, [facility] 05/11/17 1251 1723 1723 Merlin Islas MD, [facility] /EPI
[2017-05-09 11:49] VITALS: BP 95/64
[~2017-05-09 11:49] MED LIST: ASPIRIN325 PO; ATORVASTATIN CA40 MG PO; COLACE100 MG PO; DEMADEX20 MG PO; HYDROCODON-ACE1 EAC7 PO; IBUPROFEN 200200 M1 PO; LEVAQUIN 750 M750 MG PO; LOPRESSOR50 PO; POTASSIUM20 PO
[2017-05-09 13:03] LABS: HEMATOCRIT 38.6 % (42.0-52.0); HEMOGLOBIN 13.2 gm/dL (14.0-18.0); MCH 30.1 pg (26.0-34.0); MCHC 34.3 g/dL (28.0-37.0); MCV 87.7 fL (80.0-100.0); RBC 4.4 mil/uL (4.50-6.00); RDW 14.7 % (10.5-14.5)
[2017-05-09 13:12] LABS: CALCIUM 9.2 mg/dL (8.5-10.1); CREATININE 1.5 mg/dL (0.7-1.3); POTASSIUM 4.4 mmol/L (3.5-5.1)
[2017-05-09 13:21] LABS: TROPONIN-I 0.24 ng/mL (<0.04-0.07)
[2017-05-09 15:27] VITALS: BP 95/64
[2017-05-09 17:05] VITALS: BP 99/66
[2017-05-09 17:33] VITALS: BP 82/40
[2017-05-09 20:34] VITALS: BP 112/78; BP 1121/78
[2017-05-09 23:24] VITALS: BP 100/67
[2017-05-10 04:18] VITALS: BP 108/75
[2017-05-10 08:36] VITALS: BP 100/65
[2017-05-10 12:20] VITALS: BP 86/57
[2017-05-10 15:12] VITALS: BP 94/57
[2017-05-10 20:22] VITALS: BP 91/66
[2017-05-11 03:57] LABS: HEMATOCRIT 35.1 % (42.0-52.0); HEMOGLOBIN 12.1 gm/dL (14.0-18.0); MCHC 34.4 g/dL (28.0-37.0); MCV 87.5 fL (80.0-100.0); RBC 4.02 mil/uL (4.50-6.00); RDW 14.8 % (10.5-14.5); WBC 11.9 thou/uL (4.0-11.0)
[2017-05-11 03:59] LABS: PLATELET COUNT 568 thou/uL (150-400)
[2017-05-11 04:00] LABS: MANUAL DIFF YES
[2017-05-11 04:28] LABS: CALCIUM 8.4 mg/dL (8.5-10.1); CREATININE 1.5 mg/dL (0.7-1.3); MAGNESIUM 2.1 mg/dL (1.8-2.4); POTASSIUM 3.7 mmol/L (3.5-5.1)
[2017-05-11 04:45] VITALS: BP 99/69
[2017-05-11] MEDS ORDERED: VENTOLIN HFA 1818 GM INH (08:08)
[2017-05-11] MEDS ORDERED: OXYCODONE HCL 55 MG PO (08:08)
[2017-05-11] MEDS ORDERED: FLEXERIL PO (08:08)
[2017-05-11] MEDS ORDERED: LEVAQUIN 500 M500 M2 PO (08:08)
[2017-05-11 08:33] VITALS: BP 90/63
[2017-05-11 09:05] LABS: ABSOLUTE NEUTROPHILS 9.3 thou/uL (1.4-8.2); PLATELET ESTIMATE INCREASED; TOTAL CELL COUNT 100
[2017-05-11 11:36] VITALS: BP 101/65
[2017-05-11] MEDS ORDERED: LOPRESSOR50 PO (11:57)
[2017-05-11 13:11] VITALS: BP 101/65
[2017-05-11 15:36] VITALS: BP 101/65
== END 2017-05-11 17:37 | disposition home health service (06) | DRG 871 ==
LOC: ER 11:49 → EROBS 14:30 → 2N 14:30 → 4E 15:10 → 2N 16:11
PROVIDERS: Emergency Medicine; Internal Medicine
DX: A41.9 Sepsis, unspecified organism (principal); J15.6 Pneumonia due to other Gram-negative bacteria; Y95 Nosocomial condition; E78.5 Hyperlipidemia, unspecified; I10 Essential (primary) hypertension; I25.10 Atherosclerotic heart disease of native coronary artery without angina pectoris; G47.33 Obstructive sleep apnea (adult) (pediatric); I95.9 Hypotension, unspecified; Z79.84 Long term (current) use of oral hypoglycemic drugs; Z79.899 Other long term (current) drug therapy; Z95.1 Presence of aortocoronary bypass graft; Z87.891 Personal history of nicotine dependence; Z82.49 Family history of ischemic heart disease and other diseases of the circulatory system
CPT/HCPCS: 10081

== ENCOUNTER → 2017-05-24 | Outpatient (CLI) | payer OTHER ==
[~2017-05-24] MED LIST changes: +FLEXERIL PO; +LEVAQUIN 500 M500 M2 PO; +OXYCODONE HCL 55 MG PO; +VENTOLIN HFA 1818 GM INH
== END ==
LOC: RAD 13:36
DX: J90 Pleural effusion, not elsewhere classified (principal); J98.11 Atelectasis; Z98.890 Other specified postprocedural states

== ENCOUNTER 2018-10-21 05:53 | Emergency (ER) | payer OTHER ==
[~2018-10-21] VITALS: Ht 167.6 cm; Wt 77.1 kg
[2018-10-21] MEDS ORDERED: ASPIR 8181 MG PO (06:09)
[2018-10-21 07:54] VITALS: BP 168/75
== END 2018-10-21 07:55 | disposition home or self-care (01) ==
LOC: ER 05:53
DX: R04.0 Epistaxis (principal); Z87.891 Personal history of nicotine dependence; M17.11 Unilateral primary osteoarthritis, right knee

== ENCOUNTER → 2018-11-04 | Outpatient (CLI) | payer OTHER ==
[~2018-11-04] MED LIST changes: +ASPIR 8181 MG PO
== END ==
LOC: ULTRA 09:10
DX: K80.80 Other cholelithiasis without obstruction (principal); K76.89 Other specified diseases of liver

== ENCOUNTER → 2019-08-14 | Outpatient (CLI) | payer OTHER | LOC: ULTRA 09:20 | DX: K76.89 Other specified diseases of liver (principal); K80.20 Calculus of gallbladder without cholecystitis without obstruction ==

== ENCOUNTER → 2020-03-21 | Outpatient (CLI) | payer OTHER | LOC: SJCVC 10:31 | PROVIDERS: ATTEND Internal Medicine | DX: I25.10 Atherosclerotic heart disease of native coronary artery without angina pectoris (principal); R94.31 Abnormal electrocardiogram [ECG] [EKG]; I45.10 Unspecified right bundle-branch block; E78.5 Hyperlipidemia, unspecified; I10 Essential (primary) hypertension; Z95.1 Presence of aortocoronary bypass graft; Z79.899 Other long term (current) drug therapy ==

== ENCOUNTER → 2020-03-22 | Outpatient (CLI) | payer OTHER | LOC: SJCVCIMAG 11:11 | PROVIDERS: ATTEND Internal Medicine | DX: I08.8 Other rheumatic multiple valve diseases (principal); I27.20 Pulmonary hypertension, unspecified; I11.9 Hypertensive heart disease without heart failure; I25.810 Atherosclerosis of coronary artery bypass graft(s) without angina pectoris; Z95.1 Presence of aortocoronary bypass graft ==

== ENCOUNTER → 2021-02-26 | Outpatient (CLI) | payer OTHER ==
[~2021-02-26] MED LIST changes: +ASA81BEC PO; +IMDUR 30 MG TAB30 M1 PO; +LIPITOR40 MG PO; +LOPRESSOR50 MG PO; +NITROSTAT0.4 M1 SUBLING
== END ==
LOC: SJCVCIMAG 09:14
PROVIDERS: ATTEND Internal Medicine
DX: I11.9 Hypertensive heart disease without heart failure (principal); R06.00 Dyspnea, unspecified; I25.119 Atherosclerotic heart disease of native coronary artery with unspecified angina pectoris; R00.1 Bradycardia, unspecified; E78.5 Hyperlipidemia, unspecified; Z95.1 Presence of aortocoronary bypass graft; Z79.82 Long term (current) use of aspirin; Z79.899 Other long term (current) drug therapy

== ENCOUNTER → 2021-03-03 | Outpatient (CLI) | payer OTHER ==
[~2021-03-03] VITALS: Ht 167.6 cm; Wt 87.7 kg
[2021-03-03 10:34] LABS: HEMATOCRIT 42.2 % (42.0-52.0); HEMOGLOBIN 14.4 gm/dL (14.0-18.0); MCH 31.4 pg (26.0-34.0); MCHC 34.1 g/dL (28.0-37.0); MCV 92.1 fL (80.0-100.0); RBC 4.58 mil/uL (4.50-6.00); RDW 12.9 % (10.5-14.5); WBC 5.7 thou/uL (4.0-11.0)
[2021-03-03 10:35] VITALS: BP 123/62
[2021-03-03 10:40] LABS: CALCIUM 9.1 mg/dL (8.5-10.1); CREATININE 1.4 mg/dL (0.7-1.3); POTASSIUM 4.5 mmol/L (3.5-5.1)
--- NOTE | 2021-03-03 12:21 | EKG ---
[place] [address] [facility] [place] [address] ELECTROCARDIOGRAM REPORT Name: EMILIANA MASCORRO Room #: REG FERNANDA Romero#: [id number] Admission: 03/03/21 Attend Phys: Bereket Díaz Discharge: Date of : 46 Report #: [id number] [facility] Test Date: 2021-03-03 Test Time: 09:59:51 Pat Name: EMILIANA MASCORRO Department: Room: Gender: M Chip Person: LG : 1950 Requested By: Bereket Díaz Order Number: [id number] MD: Chuck Herrera Measurements Intervals [place] Rate: 59 P: 48 ND: 173 QRS: -77 QRSD: 173 T: -49 QT: 504 QTc: 500 Interpretive Statements Sinus rhythm Left atrial enlargement Right bundle branch block Borderline ST depression, lateral leads Baseline wander in lead(s) I,II,aVR,V2 Compared to ECG 05/09/2017 17:23:17 Atrial abnormality now present Right bundle-branch block now present ST (T wave) deviation now present Intraventricular conduction delay no longer present Myocardial infarct finding no longer present Electronically Signed On 03-03-2021 12:21:16 CDT by Chuck Herrera [email or web address] <ELECTRONICALLY SIGNED> By: Chuck Herrera MD, [facility]ACC 03/03/21 1221 Chuck Herrera MD, [facility] /EPI
--- NOTE | 2021-03-12 10:30 | CATHLAB ---
[facility] [place] [address] [address] INVASIVE PROCEDURE REPORT Name: EMILIANA MASCORRO Room #: REG FERNANDA Heather#: [id number] Admission: 03/03/21 Attend Phys: Bereket Díaz Discharge: Date of : 46 Report #: [id number] THIS REPORT FOR: cc: NASEEM - Family physician unknown FAM - Family physician unknown Bereket Díaz MD ~ APPROVED REPORT Study performed: 03/03/2021 10:54:46 Patient Details Patient Status: Out-Patient Room #: The patient is a 70 year-old male Event Personnel Bereket Díaz Icing Maker, Colleen Garrett RN RN, Toy Martini RTR Monitor, Radha Hernandez RTR Scrub Procedures Performed Left Heart Cath Coronaries, Bypass Grafts 2588326 LHCCORCABG Supravalvular Aortography Injection 7149457 ISVA Art Access - R femoral artery* Hemostasis with Manual pressure 46969 Initial Mod Sed Same Phys/QHP Gr5y 417381 10869 Mod Sed Same Phys/QHP Ea 992350, supervision of conscious sedation Procedure Narrative The patient was brought electively to the Cardiac Catheterization Laboratory and was prepped and draped in a sterile manner. The Right Groin^ was infiltrated with 1% Lidocaine subcutaneous anesthesia. A PINNACLE 4FR Sheath #[id number] sheath was inserted into the RFA^. Coronary angiography was performed using coronary diagnostic catheters. The right coronary system was accessed and visualized with a JR4 catheter. The left coronary system was accessed and visualized with a JL4 catheter. The left ventricle was accessed and visualized with a PIGTAIL catheter. Left ventricular/Aortic Valve gradient assessed via catheter pullback. Left ventriculogram was performed in 30 degree projection. Hemostasis was obtained with manual pressure following sheath removal without any complications. The patient tolerated the procedure well and there were no complications associated with the procedure. There was no hematoma. Intraoperative Conscious Sedation Versed 3 mg [facility] [address] [place] [address] INVASIVE PROCEDURE REPORT Name: EMILIANA MASCORRO Room #: REG [facility]#: [id number] Admission: 03/03/21 Attend Phys: Bereket Cespedes Discharge: Date of : 46 Report #: [id number] Fluoro Time: 9.20 minutes Dose: DAP 29587.70 cGycm2 1953 mGy Contrast Type and Amount: Visipaque 40 ml [place] Artery Percent Stenosis Grafts (Complete if Previous CABG=Yes: Percent Stenosis) Left Main: % Prox LAD: % Mid/Distal LAD: % Circumflex: 100 % RCA: 100 % Ramus: % Diagnostic Cath Left Main Moderate caliber vessel normal origin bifurcates left into descending left circumflex he of high-grade disease LAD Left into descending is completely occluded proximally with antegrade injection. The mid and distal circumflex are visualized via saphenous vein graft injection to the mid portion. It is a type II vessel with only mild irregularities beyond the graft. Proximal to the graft a first diagonal branch is retrograde filled with 30 to 40% proximal lesions beyond this is no high-grade lesions noted Diagonal 1 Small caliber vessel mild coronary disease approximately Circumflex Moderate caliber nondominant vessel which courses in the AV groove with moderate irregularities noted. First marginal origin is noted and is completely occluded proximally second marginal is also noted and completely occluded proximal OM1 Appear to be string-like vessel retrograde fill from injections of the left anterior descending vessel OM2 String-like vessel retrograde filling from injection of the left coronary Right Coronary Monitor large-caliber vessel of normal origin has been mild to moderate irregularities in his entire proximal midportion. Then it reaches the crux of the heart which is ice was moderate caliber posterior descending artery with only luminal irregularities as it courses in the posterior interventricular sulcus towards the apex R PDA Moderate caliber vessel without high-grade disease Hemodynamics The aortic pressure is 128/70 mmHg with a mean of 94 mmHg. The left ventricular pressure is 136/8 mmHg with a mean of mmHg. The left ventricular end diastolic pressure is 30 mmHg. Pullback from the left ventricle to the aorta revealed no gradient across the aortic valve. Conclusion [facility] [address] [place] [address] INVASIVE PROCEDURE REPORT Name: EMILIANA MASCORRO Room #: REG CL Heather#: [id number] Admission: 03/03/21 Attend Phys: Bereket Cespedes Discharge: Date of : 46 Report #: [id number] 1. Coronary disease status post aortocoronary bypass grafting with occlusion of SVGs to the left circumflex system and widely patent SVG to the LAD 2. Abnormal hemodynamics elevated limited end-diastolic pressures 3. Occlusion of SVGs except for a widely patent SVG to the LAD Recommendations Cardiac Risk Reduction Program Aggressive Medical Therapy <ELECTRONICALLY SIGNED> By: Bereket Díaz MD 03/12/21 1030 29 29 Bereket Díaz MD /INF
== END | disposition home or self-care (01) ==
LOC: CATH 06:40
PROVIDERS: ATTEND Internal Medicine
DX: R07.9 Chest pain, unspecified (principal); I25.810 Atherosclerosis of coronary artery bypass graft(s) without angina pectoris; R94.39 Abnormal result of other cardiovascular function study; I10 Essential (primary) hypertension; E78.5 Hyperlipidemia, unspecified; I25.2 Old myocardial infarction; Z98.890 Other specified postprocedural states; Z79.899 Other long term (current) drug therapy; Z87.01 Personal history of pneumonia (recurrent); Z95.1 Presence of aortocoronary bypass graft; Z79.82 Long term (current) use of aspirin

== ENCOUNTER → 2021-03-19 | Outpatient (CLI) | payer OTHER | LOC: SJCVC 13:51 | PROVIDERS: ATTEND Internal Medicine | DX: I25.119 Atherosclerotic heart disease of native coronary artery with unspecified angina pectoris (principal); E78.5 Hyperlipidemia, unspecified; I10 Essential (primary) hypertension; R06.00 Dyspnea, unspecified; R53.83 Other fatigue; R07.89 Other chest pain; I45.10 Unspecified right bundle-branch block; Z95.1 Presence of aortocoronary bypass graft; Z98.890 Other specified postprocedural states; Z79.82 Long term (current) use of aspirin; Z79.899 Other long term (current) drug therapy ==

== ENCOUNTER → 2021-10-28 | Outpatient (CLI) | payer OTHER ==
[~2021-10-28] MED LIST changes: +AMIODARONE HCL400 MG PO; +ELIQUIS5 MG PO; +ISOSORBIDE DINI30 MG PO; +METOPROLOL SUCC25 M1 PO; +PRADAXA150 MG PO; +TOPROL XL50 MG PO; +TRIAMCINOLONE A80 G2 TOP; +VITAMIN D325 MC3 PO
== END ==
LOC: SJCVC 09:51
PROVIDERS: ATTEND Internal Medicine
DX: R94.31 Abnormal electrocardiogram [ECG] [EKG] (principal); I45.10 Unspecified right bundle-branch block; I48.92 Unspecified atrial flutter; I25.10 Atherosclerotic heart disease of native coronary artery without angina pectoris; I10 Essential (primary) hypertension; E78.5 Hyperlipidemia, unspecified; Z95.1 Presence of aortocoronary bypass graft; Z79.899 Other long term (current) drug therapy; Z95.818 Presence of other cardiac implants and grafts

== ENCOUNTER 2021-11-02 11:23 | Observation (INO) | payer MEDICARE ==
[~2021-11-02] VITALS: Ht 167.6 cm; Wt 84.5 kg
[~2021-11-02 11:23] MED LIST changes: -AMIODARONE HCL400 MG PO; -ELIQUIS5 MG PO; -ISOSORBIDE DINI30 MG PO; -METOPROLOL SUCC25 M1 PO; -PRADAXA150 MG PO; -TOPROL XL50 MG PO; -TRIAMCINOLONE A80 G2 TOP; -VITAMIN D325 MC3 PO
[2021-11-02 11:26] VITALS: BP 114/77
[2021-11-02] MEDS ORDERED: ATORVASTATIN CA40 MG PO (11:30)
[2021-11-02] MEDS ORDERED: LOPRESSOR50 PO (11:30)
[2021-11-02] MEDS ORDERED: TRIAMCINOLONE A80 G2 TOP (11:30)
[2021-11-02 12:18] VITALS: BP 114/77
[2021-11-02] MEDS ORDERED: ELIQUIS5 MG PO (12:42)
[2021-11-02] MEDS ORDERED: LIPITOR40 MG PO (12:42)
[2021-11-02] MEDS ORDERED: TOPROL XL50 MG PO (12:42)
[2021-11-02] MEDS ORDERED: ISOSORBIDE DINI30 MG PO (12:42)
[2021-11-02] MEDS ORDERED: VITAMIN D325 MC3 PO (12:43)
[2021-11-02 12:59] VITALS: BP 102/72
[2021-11-02 13:15] VITALS: BP 120/76
[2021-11-02 15:05] VITALS: BP 107/71
[2021-11-02] MEDS ORDERED: PRADAXA150 MG PO (16:42)
--- NOTE | 2021-11-02 17:15 | EKG ---
[place] [address] [facility] [place] [address] ELECTROCARDIOGRAM REPORT Name: EMILIANA MASCORRO Room #: 200-I ADM IN M.R.#: [id number] Admission: 11/02/21 Attend Phys: Bereket Díaz Discharge: Date of : 46 Report #: [id number] [facility] Test Date: 2021-11-02 Test Time: 13:28:45 Pat Name: EMILIANA MASCORRO Department: Room: 200 I Gender: M Shovel Mechanic: VERNON : 1950 Requested By: Bereket Díaz Order Number: [id number] MD: Bereket Díaz Measurements Intervals [facility] Rate: 97 P: VT: QRS: -77 QRSD: 174 T: -58 QT: 433 QTc: 550 Interpretive Statements Atrial flutter Right bundle branch block Compared to ECG 11/02/2021 11:31:06 No significant changes Electronically Signed On 11-02-2021 17:14:55 PLAYERS ASSISTANT by Bereket Díaz [email or web address] <ELECTRONICALLY SIGNED> By: Bereket Díaz MD 11/02/21 1714 1328 1328 Bereket Díaz MD /MANGO
[2021-11-02 20:00] VITALS: BP 118/78
[2021-11-03 04:00] VITALS: BP 109/82
[2021-11-03 07:20] VITALS: BP 116/84
--- NOTE | 2021-11-03 07:40 | EKG ---
[address] [address] [facility] [place] [address] ELECTROCARDIOGRAM REPORT Name: EMILIANA MASCORRO Room #: 200-I ADM [facility] M.R.#: [id number] Admission: 11/02/21 Attend Phys: Bereket Díaz Discharge: Date of : 46 Report #: [id number] [facility] ED Test Date: 2021-11-02 Test Time: 11:31:06 Pat Name: EMILIANA MASCORRO Department: Room: 200 Gender: M Electrician Second: PLACIDO : 1950 Requested By: Chris Blanchard Order Number: [id number] MD: Chuck Herrera Measurements Intervals [place] Rate: 85 P: [place]: QRS: -71 QRSD: 173 T: -2 QT: 422 QTc: 502 Interpretive Statements Atrial flutter Ventricular premature complex Right bundle branch block Borderline ST depression, lateral leads Compared to ECG 03/03/2021 09:59:51 Ventricular premature complex(es) now present Sinus rhythm no longer present Atrial abnormality no longer present ST (T wave) deviation still present Electronically Signed On 11-03-2021 7:40:09 [employer] WORKER APPRENTICE by Chuck Herrera [email or web address] <ELECTRONICALLY SIGNED> By: Chuck Herrera MD, FACC 11/03/21 0740 1131 1131 Chuck Herrera MD, [facility] /EPI
--- NOTE | 2021-11-03 13:37 | NUR ---
DR ZAMARRIPA NOTIFIED THAT PT'S BP STILL LOW AROUND 80 SYSTOLIC AFTER ONE LITER FLUID BOLUS. PT STILL SLEEPY ONE HOUR POST SEDATION. ROMAZICON 0.5MG GIVEN IV AT 1240. BP STILL LOW SO 2ND LITER NS HUNG. SAT IN UPPER 90S. PT BECAME CLAMMY AND NAUSEOUS BRIEFLY AFTER ROMAZICON GIVEN. CONTINUING TO GIVE NS IV AND WATCHING PT. PT AROUSES EASILY BUT QUICK TO GO BACK TO SLEEP. STATES HE'S VERY SLEEPY BECAUSE HE WAS UP ALL NIGHT. HR 45-55.
[2021-11-03 14:30] VITALS: BP 87/59
--- NOTE | 2021-11-03 14:37 | NUR ---
CHART REVIEWED AND DISCUSSED WITH CARE TEAM. CM MET WITH PT THIS DAY. FAMILY AT BEDSIDE. PT INFORMED CM HE HAS NO DC NEEDS ONCE MEDICALLY STABLE. NURSING WILL INFORM CM SHOULD ANY DC NEEDS ARISE. NO FURTHER CM INTERVENTIONS INDICATED.
--- NOTE | 2021-11-03 15:15 | NUR ---
PT EDUCATED ON SYMPTOMATIC LOW HR AND BP PRECAUTIONS. PT TOLD BY DR. ZAMARRIPA THAT IT IS UNSAFE TO BE OUT OF BED UNTIL HIS VITAL SIGNS IMPROVE. THE PT AND HIS BOTH ACKNOWLEDGED THIS EDUCATION. UPON LEAVING THE ROOM TO OBTAIN A BEDPAN, THE PT GOT UP OUT OF BED, BED ALARMS WENT OFF, AND WAS FOUND LETHARGIC WITH HEAD DOWN, ARMS WEAK/LIMP. THE PT'S LAUGHED AND STATED HE WAS FINE. THE PT INSISTED HE WAS FINE WHILE UNABLE TO LIFT HIS HEAD AND REPEATED REQUESTED I LEAVE HIS SIDE AND SHUT THE DOOR. WHEN I REFUSED TO LEAVE HIS SIDE AND EDUCATED HIM ON THE IMPORTANCE OF MY PRESENCE FOR HIS SAFETY, THE PT GOT UP AND WEAKLY WALKED BACK TO BED. HE WAS ONCE AGAIN EDUCATED ON NOT GETTING OUT OF BED, AND ESPECIALLY NOT AMBULATING WITHOUT NURSING STAFF, AND THE PT DISREGARDED THE EDUCATION AGAIN STATING THAT HE WAS FINE AND SAFE TO GET UP. BED ALARMS WERE ONCE AGAIN PLACED AND WILL CONTINUE HOURLY ROUNDING TO ENSURE THE PATIENT'S SAFETY. EDUCATION WILL BE REINFORCED DURING THESE TIMES.
[2021-11-03 16:10] VITALS: BP 105/68
--- NOTE | 2021-11-03 17:00 | NUR ---
PATIENT AND PATIENT'S REFUSING TO CALL STAFF TO ASSIST WHEN AMBULATING, DESPITE BED ALARMS BEING PLACED. REINFORCED EDUCATION ON FALL PRECAUTIONS AND SAFETY A MULTITUDE OF TIMES SINCE THE PATIENT RETURNED FROM HIS CARDIOVERSION, BUT BOTH ARE REFUSING EDUCATION AT THIS TIME. PATIENT ALSO WANTS HIS TO STAY OVERNIGHT WITH HIM. EDUCATED THEM ON THE HOSPITAL VISITING POLICY AND VISITING HOURS. THEY COMMNICATE UNDERSTANDING, BUT REINFORCEMENT LIKELY NEEDED.
--- NOTE | 2021-11-03 18:09 | NUR ---
LATE ENTRY 1415: BACK TO ROOM 200 PER RN. PT RECEIVED 2 LITERS NS WHILE IN CV HOLDING RECOVERY DUE TO LOW BP. BP 93/64 UPON TRANSFER BACK TO CCU. REPORT TO PILAR. HR 50 SINUS RHYTHM.
[2021-11-03 19:00] VITALS: BP 109/76
--- NOTE | 2021-11-03 22:14 | NUR ---
PATIENT CARES ASSUMED AT SHIFT CHANGE. PATIENT WAS ASSESSED AND MEDS PASSED ABLE. PATIENT HAD FOUR EMISIS FROM SEVEN TO TEN PM THIS SHIFT. CALL FOR A ZOFRAN ORDER TO HELP CALM THE NAUSEA. AFTER ABOUT TEN MINUTES AND A RESTROOM BREAK PATIENT RECOVERED ENOUGH TO TAKE PILLS WITHOUT UPSETTING HIS STOMACH. ROUNDS ARE DONE. WILL CONTINUE TO MONITOR THIS PATIENT AND HIS BLOOD PRESSURE FOR ANY CHANGES. THE BED IS IN A LOW AND LOCKED POSITION.
[2021-11-03 23:52] VITALS: BP 122/67
[2021-11-04 04:15] VITALS: BP 132/75
--- NOTE | 2021-11-04 05:25 | NUR ---
AFTER ZOFRAN PATIENT WAS ABLE TO RELAX. NO MORE EMISIS AFTER DOSE WAS GIVEN. PATIENT RECIEVED A ONE TIME DOSE OF AMBIEN AND APPERED TO BE SLEEPING EACH TIME NURSING ROUNDED. WILL CONTINUE TO ROUND AND MONITOR, THE BED IS IN A LOW AND LOCKED POSITION.
[2021-11-04 07:00] VITALS: BP 109/63
[2021-11-04] MEDS ORDERED: METOPROLOL SUCC25 M1 PO (11:36)
[2021-11-04] MEDS ORDERED: AMIODARONE HCL400 MG PO (11:37)
[2021-11-04 11:40] VITALS: BP 110/75
[2021-11-04 11:58] VITALS: BP 109/63
--- NOTE | 2021-11-06 23:49 | P ---
[facility] [place] [address] PROCEDURE REPORT Name: EMILIANA MASCORRO Room #: 200-I [facility] Jeremie Romero#: [id number] Admission: 11/02/21 Attend Phys: Bereket Díaz Discharge: 11/04/21 Date of : 46 Report #: [id number] THIS REPORT FOR: cc: Roger Cruz David J. DO Lammoglia, Francisco J. MD ~ DATE OF SERVICE: 11/03/2021 PROCEDURE PERFORMED: 1. Electrical cardioversion. 2. Supervision of conscious sedation. INDICATIONS: A 71-year-old male patient with symptomatic paroxysmal atrial fibrillation. DESCRIPTION OF PROCEDURE: The patient was brought to the Cardiac Catheterization Laboratory, prepped and hold following informed consent. He was going to monitor continuously electrocardiographically and oximetrically. Versed 2 mg and Demerol 25 mg were given IV push and he subsequently underwent AP shock biphasic 200 joules x 1. This converted into a sinus bradycardia with first-degree AV block. Post procedure, the patient became hypotensive requiring fluid challenges without other complaints. Rhythm remained stable in a sinus bradycardia. The patient tolerated the procedure well and improved post fluid hydration. <ELECTRONICALLY SIGNED> By: Bereket Díaz MD 11/06/21 2349 [id number] Bereket Díaz MD /nt
== END 2021-11-04 13:29 | disposition home or self-care (01) ==
LOC: ER 11:23 → 2N 12:15 → EROBS 12:15 → 2N 12:15
PROVIDERS: ADMIT Internal Medicine; ATTEND Internal Medicine
DX: I48.0 Paroxysmal atrial fibrillation (principal); Z20.822 Contact with and (suspected) exposure to COVID-19; I10 Essential (primary) hypertension; I21.4 Non-ST elevation (NSTEMI) myocardial infarction; M17.11 Unilateral primary osteoarthritis, right knee; Z23 Encounter for immunization; I25.10 Atherosclerotic heart disease of native coronary artery without angina pectoris; Z79.82 Long term (current) use of aspirin; Z79.899 Other long term (current) drug therapy